=== PATIENT | female | born 1945 | race Caucasian/White ===

== ENCOUNTER → 2019-12-01 | Outpatient (CLI) | payer MEDICARE, OTHER ==
[~2019-12-01] MED LIST: ACYC400T PO; ATOR40TA PO; CARV12.5 PO; DEXA4TAB PO; FURO-80 PO; IXAZ3CAP PO; LENA10CA PO; NITR0.4T SL; ONDA8TAB16 PO; PANT40TA5 PO; POTA10TA6 PO; POTA20TA14 PO; ROPI2TAB8 PO; TICA90TA PO; WARF2TAB98 PO; ZINC50TA42 PO
== END | disposition home or self-care (01) ==
LOC: NPLAB 17:15
PROVIDERS: ATTEND Internal Medicine Interventional Cardiology
DX: I48.20 Chronic atrial fibrillation, unspecified (principal)
CPT/HCPCS: 36415; 85610

== ENCOUNTER → 2019-12-05 | Outpatient (CLI) | payer MEDICARE, OTHER | END | disposition home or self-care (01) | LOC: LAB 08:25 | PROVIDERS: ATTEND Internal Medicine Interventional Cardiology | DX: R06.02 Shortness of breath (principal) | CPT/HCPCS: 36415; 85610 ==